=== PATIENT | female | born 1970 | race Caucasian/White ===

== ENCOUNTER 2022-01-23 12:43 | Emergency (ER) | payer OTHER ==
[~2022-01-23] VITALS: Ht 165.1 cm; Wt 60.3 kg
[2022-01-23] MEDS ORDERED: HYDROXYCHLOROQ200 MG PO (12:57)
[2022-01-23] MEDS ORDERED: IMURAN50 MG PO (12:57)
[2022-01-23] MEDS ORDERED: PROZAC20 MG PO (12:58)
[2022-01-23] MEDS ORDERED: WELLBUTRIN XL300 MG PO (12:58)
[2022-01-23] MEDS ORDERED: PROZAC40 MG PO (12:58)
[2022-01-23] MEDS ORDERED: SYNTHROID88 MCG PO (12:59)
[2022-01-23] MEDS ORDERED: TRAZODONE HCL50 MG PO (12:59)
[2022-01-23] MEDS ORDERED: CLONAZEPAM1 MG PO (12:59)
== END 2022-01-23 17:13 | disposition home or self-care (01) ==
LOC: ER 12:43
DX: N88.8 Other specified noninflammatory disorders of cervix uteri (principal); R10.2 Pelvic and perineal pain

== ENCOUNTER 2022-01-28 08:24 | Emergency (ER) | payer OTHER ==
[~2022-01-28] VITALS: Ht 165.1 cm; Wt 60.3 kg
[~2022-01-28 08:24] MED LIST: CLONAZEPAM1 MG PO; HYDROXYCHLOROQ200 MG PO; IMURAN50 MG PO; PROZAC20 MG PO; PROZAC40 MG PO; SYNTHROID88 MCG PO; TRAZODONE HCL50 MG PO; WELLBUTRIN XL300 MG PO
== END 2022-01-28 10:36 | disposition home or self-care (01) ==
LOC: ER 08:24
DX: R10.2 Pelvic and perineal pain (principal); I10 Essential (primary) hypertension; Z88.6 Allergy status to analgesic agent; Z88.8 Allergy status to other drugs, medicaments and biological substances

== ENCOUNTER 2022-03-09 12:28 | Inpatient (IN) | payer OTHER ==
[~2022-03-09] VITALS: Ht 165.1 cm; Wt 59.0 kg
--- NOTE | 2022-03-09 12:58 | NUR ---
SE RECIBE PACIENTE ALERTA, ORIENTADA X 3 ESFERAS REFIERE TENER MALESTAR GENERAL, DOLORDOLOR CUERPO, ESPALDA BAJA , REFIERE INFECCION DE ORINA PTE PRESENTA VOMITO EN AREA DE TRIAGE SE ESTIMAN S/V SE UBIVCA EN AREA DE OBSERVACION
--- NOTE | 2022-03-09 15:13 | NUR ---
PTE EVALUADO POR MD YASMIN BRODYENA [place] MED. PTE SE ORIEWNTA SOBRE EL MISMO Y REFIER EENTENDER. MS ANN EJECUTA ORDENES BAJO MEDIDDAS ACEPTICAS. PTE PEND POR RESULTADOS DE LAB.
[2022-03-12] MEDS ORDERED: REPLENS VAGINAL35 GM (10:56)
[2022-03-12] MEDS ORDERED: ESTRADIOL10 MCG (10:56)
[2022-03-12] MEDS ORDERED: ARIPIPRAZOLE5 MG (10:56)
[2022-03-12] MEDS ORDERED: OFLOXACIN5 ML (10:56)
[2022-03-12] MEDS ORDERED: PREMARIN30 GM (10:57)
[2022-03-12] MEDS ORDERED: FAMOTIDINE20 MG (10:57)
[2022-03-12] MEDS ORDERED: EPINEPHRIN0.3 MG/0.3 (10:57)
[2022-03-14] MEDS ORDERED: IPRATROPIU0.2 MG/1 M IH (14:22)
[2022-03-14] MEDS ORDERED: LORATADINE10 MG PO (14:22)
[2022-03-14] MEDS ORDERED: XOPENEX0.63 MG/3 IH (14:23)
[2022-03-14] MEDS ORDERED: TUSSIN DM LIQU118 ML PO (14:23)
[2022-03-14] MEDS ORDERED: BENZONATATE100 MG PO (14:23)
[2022-03-14] MEDS ORDERED: FLONASE16 GM NASAL (14:24)
[2022-03-14] MEDS ORDERED: INTESTINEX680 M1 PO (14:24)
[2022-03-14] MEDS ORDERED: PREDNISONE10 MG PO (14:25)
[2022-03-14] MEDS ORDERED: AMPICILLIN TRI500 MG PO (14:26)
[2022-03-14] MEDS ORDERED: PEPCID AC20 MG PO (14:27)
[2022-03-14] MEDS ORDERED: DEXILANT30 MG PO (14:27)
== END 2022-03-14 17:04 | disposition home or self-care (01) | DRG 690 ==
LOC: ER 12:28 → MEDI 03-10 04:37 → MEDJ 03-12 11:07
PROVIDERS: ADMIT Internal Medicine; ATTEND Internal Medicine
PROC: BW21ZZZ Computerized Tomography (CT Scan) of Abdomen and Pelvis (ICD-10-PCS; principal; 2022-03-10)
DX: N39.0 Urinary tract infection, site not specified (principal); B96.89 Other specified bacterial agents as the cause of diseases classified elsewhere; M32.9 Systemic lupus erythematosus, unspecified; M79.7 Fibromyalgia; Z20.822 Contact with and (suspected) exposure to COVID-19; E03.9 Hypothyroidism, unspecified

== ENCOUNTER 2022-06-15 09:48 | Emergency (ER) | payer OTHER ==
[~2022-06-15] VITALS: Ht 165.1 cm; Wt 61.2 kg
[~2022-06-15 09:48] MED LIST changes: +AMPICILLIN TRI500 MG PO; +ARIPIPRAZOLE5 MG; +BENZONATATE100 MG PO; +DEXILANT30 MG PO; +EPINEPHRIN0.3 MG/0.3; +ESTRADIOL10 MCG; +FAMOTIDINE20 MG; +FLONASE16 GM NASAL; +INTESTINEX680 M1 PO; +IPRATROPIU0.2 MG/1 M IH; +LORATADINE10 MG PO; +OFLOXACIN5 ML; +PEPCID AC20 MG PO; +PREDNISONE10 MG PO; +PREMARIN30 GM; +REPLENS VAGINAL35 GM; +TUSSIN DM LIQU118 ML PO; +XOPENEX0.63 MG/3 IH
== END 2022-06-15 17:35 | disposition left against medical advice (07) ==
LOC: ER 09:48
DX: R10.2 Pelvic and perineal pain (principal); N39.0 Urinary tract infection, site not specified; Z88.6 Allergy status to analgesic agent; Z88.8 Allergy status to other drugs, medicaments and biological substances; Z20.822 Contact with and (suspected) exposure to COVID-19

== ENCOUNTER 2022-10-18 07:32 | Outpatient (CLI) | payer OTHER | END 2022-10-18 07:38 | disposition home or self-care (01) | LOC: SONOGRAMA 07:32 | PROVIDERS: ATTEND General Practice | DX: R80.9 Proteinuria, unspecified (principal); N39.9 Disorder of urinary system, unspecified; N18.31 Chronic kidney disease, stage 3a; M32.10 Systemic lupus erythematosus, organ or system involvement unspecified ==

== ENCOUNTER 2022-12-20 08:24 | Emergency (ER) | payer OTHER ==
[~2022-12-20] VITALS: Ht 165.1 cm; Wt 62.6 kg
[2022-12-20] MEDS ORDERED: SYNTHROID88 MCG PO (08:42)
[2022-12-20] MEDS ORDERED: PROZAC40 MG PO (08:42)
[2022-12-20] MEDS ORDERED: IMURAN50 MG (08:43)
[2022-12-20] MEDS ORDERED: CLONAZEPAM1 MG PO (08:43)
== END 2022-12-20 12:54 | disposition home or self-care (01) ==
LOC: ER 08:24
DX: N39.0 Urinary tract infection, site not specified (principal); L93.0 Discoid lupus erythematosus; Z88.6 Allergy status to analgesic agent; Z88.8 Allergy status to other drugs, medicaments and biological substances

== ENCOUNTER 2023-02-09 10:07 | Emergency (ER) | payer OTHER ==
[~2023-02-09] VITALS: Ht 165.1 cm; Wt 65.3 kg
[~2023-02-09 10:07] MED LIST changes: +IMURAN50 MG
[2023-02-09] MEDS ORDERED: PLAQUENIL (10:45)
== END 2023-02-09 15:49 | disposition home or self-care (01) ==
LOC: ER 10:07
PROVIDERS: Emergency Medicine
DX: M32.8 Other forms of systemic lupus erythematosus (principal); K21.9 Gastro-esophageal reflux disease without esophagitis; K29.70 Gastritis, unspecified, without bleeding; K58.8 Other irritable bowel syndrome; F32.89 Other specified depressive episodes; Z88.6 Allergy status to analgesic agent; Z88.8 Allergy status to other drugs, medicaments and biological substances; M79.7 Fibromyalgia
CPT/HCPCS: 36415; 96365; 96366; 99284; J2270; J3490; J7042

== ENCOUNTER 2023-11-20 11:16 | Emergency (ER) | payer OTHER ==
[~2023-11-20] VITALS: Ht 165.1 cm; Wt 66.7 kg
[~2023-11-20 11:16] MED LIST changes: +GUAIFENESI100 MG/52 PO; +LIRICA; +PLAQUENIL; +PROPRANOLOL HCL10 MG; +ZITHROMAX500 MG PO
[2023-11-20] MEDS ORDERED: FAMOTIDINE/PF 20 MG in 0.9 % SODIUM CHLORIDE 8 ML IV PUSH STA (11:37)
[2023-11-20] MEDS ORDERED: 0.9 % SODIUM CHLORIDE 1,000 ML IV SCH (11:45)
[2023-11-20] MEDS ORDERED: HYOSCYAMINE SULFATE 0.125 MG TAB.SUBL SL ONE (11:45)
[2023-11-20] MEDS ORDERED: ONDANSETRON HCL 2 MG/ML VIAL IV ONE (11:45)
[2023-11-20] MEDS ORDERED: HYOSCYAMINE SULFATE 0.125 MG TAB.SUBL ONE (11:58)
[2023-11-20] MEDS ORDERED: ONDANSETRON HCL 2 MG/ML VIAL ONE (11:58)
[2023-11-20] MEDS ORDERED: FAMOTIDINE/PF 20 MG/2 ML VIAL ONE (11:59)
[2023-11-20 12:49] LABS: HEMATOCRIT 35.6 % (36.0-45.00); HEMOGLOBIN 11.8 g/dL (12.0-15.00); MEAN CELL VOLUME 87.6 fL (80.00-100.00); MEAN CORPUSCULAR HEMOGLOBIN 29.1 pg (27.00-32.0); MEAN CORPUSCULAR HGB CONC 33.2 g/dl (32.0-36.0); PLATELET COUNT 217 K/uL (150-450); RED BLOOD COUNT 4.07 M/uL (4.00-6.00)
[2023-11-20 13:05] LABS: ALBUMIN 3.4 gm/dL (3.4-5.0); BILIRUBIN TOTAL 0.23 mg/dL (0.3-1.2); CALCIUM 9.4 mg/dL (8.5-10.1); CREATININE SERUM 0.97 mg/dL (0.55-1.02); GFR 59.84; GLOBULINA 3.9 G/DL (2.4-3.5); POTASSIUM 4.08 mEq/L (3.5-5.1); TOTAL PROTEIN 7.3 gm/dL (6.4-8.2)
[2023-11-20] MEDS ORDERED: ALBUTEROL SULFATE 8.5 GM HFA.AER.AD IH SCH (14:11)
[2023-11-20] MEDS ORDERED: GUAIFENESIN/DEXTROMETHORPHAN 10ML BLIST.PACK PO ONE ×2 (14:15→14:40)
[2023-11-20] MEDS ORDERED: XOPENEX CO1.25 MG/0. IH (15:56)
[2023-11-20] MEDS ORDERED: PEPCID AC20 MG PO (15:56)
[2023-11-20] MEDS ORDERED: ZITHROMAX500 MG PO (15:56)
[2023-11-20] MEDS ORDERED: TUSNEL LIQUID178 ML PO (15:56)
[2023-11-20] MEDS ORDERED: ONDANSETRON ODT8 MG PO (15:56)
== END 2023-11-20 16:24 | disposition home or self-care (01) ==
LOC: ER 11:17
PROVIDERS: General Practice
DX: U07.1 COVID-19 (principal); A49.3 Mycoplasma infection, unspecified site; K29.00 Acute gastritis without bleeding; R10.9 Unspecified abdominal pain; Z88.6 Allergy status to analgesic agent
CPT/HCPCS: 36415; 76700; 96365; 96366; 99284; J2405; J3490; J7030

== ENCOUNTER 2023-12-10 07:25 | Outpatient (CLI) | payer OTHER ==
[~2023-12-10 07:25] MED LIST changes: +ONDANSETRON ODT8 MG PO; +TUSNEL LIQUID178 ML PO; +XOPENEX CO1.25 MG/0. IH
== END 2023-12-10 07:26 | disposition home or self-care (01) ==
LOC: NUCLEAR 07:25
DX: K31.84 Gastroparesis (principal)
CPT/HCPCS: 78264; A9541

== ENCOUNTER 2023-12-16 08:49 | Outpatient (CLI) | payer OTHER | END 2023-12-16 09:06 | disposition home or self-care (01) | LOC: TOM 08:49 | PROVIDERS: ATTEND Internal Medicine Gastroenterology | DX: K56.51 Intestinal adhesions [bands], with partial obstruction (principal) ==

== ENCOUNTER → 2024-01-20 | Emergency (ER) | payer OTHER | END | disposition left against medical advice (07) | LOC: ER 11:30 | DX: Z53.21 Procedure and treatment not carried out due to patient leaving prior to being seen by health care provider (principal) ==

== ENCOUNTER 2024-04-02 18:11 | Emergency (ER) | payer OTHER ==
[~2024-04-02] VITALS: Ht 165.1 cm; Wt 65.8 kg
[2024-04-02] MEDS ORDERED: LEVO-T88 MCG PO (18:22)
[2024-04-02] MEDS ORDERED: IMURAN50 MG PO (18:23)
[2024-04-02] MEDS ORDERED: PROZAC20 MG PO (18:24)
[2024-04-02] MEDS ORDERED: HYDROXYCHLOROQ200 MG PO (18:26)
[2024-04-02] MEDS ORDERED: ONDANSETRON HCL 2 MG/ML VIAL IV STA (18:42)
[2024-04-02] MEDS ORDERED: 0.9 % SODIUM CHLORIDE 1,000 ML IV SCH (18:45)
[2024-04-02] MEDS ORDERED: MEPERIDINE HCL/PF 50 MG/ML VIAL IM ONE (18:45)
[2024-04-02 19:12] LABS: HEMATOCRIT 35.8 % (36.0-45.00); HEMOGLOBIN 12.1 g/dL (12.0-15.00); MEAN CELL VOLUME 89.2 fL (80.00-100.00); MEAN CORPUSCULAR HEMOGLOBIN 30.3 pg (27.00-32.0); MEAN CORPUSCULAR HGB CONC 33.9 g/dl (32.0-36.0); PLATELET COUNT 210 K/uL (150-450); RED BLOOD COUNT 4.01 M/uL (4.00-6.00)
[2024-04-02 19:32] LABS: CREATININE SERUM 0.9 mg/dL (0.55-1.02); GFR 65.25; POTASSIUM 4.11 mEq/L (3.5-5.1)
[2024-04-02 21:12] LABS: URINE APPEARANCE Turbid; URINE BILIRRUBIN Negative (NEGATIVE); URINE BLOOD Negative; URINE COLOR Yellow; URINE GLUCOSE Negative (NEGATIVE); URINE KETONE Negative (NEGATIVE); URINE LEUKOCYTE Moderate; URINE NITRATE Negative; URINE PROTEIN 30 (NEGATIVE); URINE UROBILINOGEN 0.2 E.U./dl
[2024-04-02 21:15] LABS: URINE BACTERIA 3006.3 uL (0.0-1933); URINE EPITHELIAL CELLS 69.7 uL (0.0-38.8); URINE RBC 6.7 uL (0.0-20.8)
[2024-04-02 21:28] LABS: URINE CAST 0.15 uL (0.0-1.40)
[2024-04-02] MEDS ORDERED: MEPERIDINE HCL/PF 25 MG/ML VIAL IV ONE (21:45)
[2024-04-03] MEDS ORDERED: levoFLOXacin IN DEXTROSE 5 % 500MG/100ML PIGGYBAG IV ONE (00:15)
[2024-04-03] MEDS ORDERED: LEVOFLOXACIN500 MG PO (02:45)
== END 2024-04-03 03:14 | disposition home or self-care (01) ==
LOC: ER 18:13
PROVIDERS: Emergency Medicine
DX: N39.0 Urinary tract infection, site not specified (principal); R10.2 Pelvic and perineal pain; E03.8 Other specified hypothyroidism; Z88.6 Allergy status to analgesic agent; Z88.8 Allergy status to other drugs, medicaments and biological substances
CPT/HCPCS: 36415; 74176; 96365; 96366; 96372; 99284; J1956; J2405; J3490 ×2; J7030

== ENCOUNTER 2024-04-05 13:28 | Emergency (ER) | payer OTHER ==
[~2024-04-05] VITALS: Ht 165.1 cm; Wt 65.8 kg
[~2024-04-05 13:28] MED LIST changes: +LEVO-T88 MCG PO; +LEVOFLOXACIN500 MG PO
[2024-04-05] MEDS ORDERED: MEPERIDINE HCL/PF 50 MG/ML VIAL IM ONE (16:00)
[2024-04-05] MEDS ORDERED: 0.9 % SODIUM CHLORIDE 1,000 ML IV ONE (16:00)
[2024-04-05] MEDS ORDERED: FAMOTIDINE/PF 20 MG/2 ML VIAL IV ONE (16:00)
[2024-04-05] MEDS ORDERED: ONDANSETRON HCL 2 MG/ML VIAL IV ONE (16:00)
[2024-04-05 16:27] LABS: HEMATOCRIT 37.6 % (36.0-45.00); HEMOGLOBIN 12.7 g/dL (12.0-15.00); MEAN CELL VOLUME 89.4 fL (80.00-100.00); MEAN CORPUSCULAR HEMOGLOBIN 30.3 pg (27.00-32.0); MEAN CORPUSCULAR HGB CONC 33.8 g/dl (32.0-36.0); PLATELET COUNT 226 K/uL (150-450); RED CELL DISTRIBUTION WIDTH 15.6 % (11.5-14.5)
[2024-04-05 17:38] LABS: ALBUMIN 3.5 gm/dL (3.4-5.0); BILIRUBIN TOTAL 0.29 mg/dL (0.3-1.2); CALCIUM 8.9 mg/dL (8.5-10.1); CREATININE SERUM 0.97 mg/dL (0.55-1.02); GFR 59.84; GLOBULINA 2.8 G/DL (2.4-3.5); POTASSIUM 3.67 mEq/L (3.5-5.1); TOTAL PROTEIN 6.3 gm/dL (6.4-8.2)
[2024-04-05 18:13] LABS: PH,URINE 7.5 (5.0-8.0); URINE APPEARANCE Cloudy; URINE BILIRRUBIN Negative (NEGATIVE); URINE BLOOD Negative; URINE COLOR Dark Yellow; URINE GLUCOSE Negative (NEGATIVE); URINE KETONE Trace (NEGATIVE); URINE LEUKOCYTE Small; URINE NITRATE Negative; URINE PROTEIN 30 (NEGATIVE); URINE UROBILINOGEN 0.2 E.U./dl
[2024-04-05 18:17] LABS: URINE BACTERIA 991.5 uL (0.0-1933); URINE EPITHELIAL CELLS 46.5 uL (0.0-38.8); URINE RBC 4.1 uL (0.0-20.8); URINE WBC 11.4 uL (0.0-23.2)
[2024-04-05] MEDS ORDERED: ORPHENADRINE CITRATE 30 MG/ML AMPUL IV ONE (19:00)
[2024-04-05] MEDS ORDERED: ONDANSETRON HCL4 MG PO (20:20)
[2024-04-05] MEDS ORDERED: NORFLEX100MG PO (20:20)
== END 2024-04-05 20:56 ==
LOC: ER 13:30 → EDBD 14:59 → ER 14:59
PROVIDERS: Nurse Practitioner Family
DX: N39.0 Urinary tract infection, site not specified (principal); E03.8 Other specified hypothyroidism; Z88.5 Allergy status to narcotic agent; Z88.8 Allergy status to other drugs, medicaments and biological substances
CPT/HCPCS: 36415; 76770; 96365; 96366; 96372; 99284; J2360; J2405; J3490 ×2; J7030

== ENCOUNTER 2024-05-01 10:38 | Emergency (ER) | payer OTHER ==
[~2024-05-01] VITALS: Ht 165.1 cm; Wt 65.8 kg
[~2024-05-01 10:38] MED LIST changes: +NORFLEX100MG PO; +ONDANSETRON HCL4 MG PO
[2024-05-01] MEDS ORDERED: PLAQUENIL PO (11:33)
[2024-05-01] MEDS ORDERED: TRAZODONE HCL150 MG (11:33)
[2024-05-01] MEDS ORDERED: TRAMADOL HCL 50 MG TABLET PO STA (12:02)
[2024-05-01] MEDS ORDERED: MEPERIDINE HCL/PF 25 MG/ML VIAL IM STA (12:03)
[2024-05-01 12:47] LABS: URINE APPEARANCE Clear; URINE BILIRRUBIN Small (NEGATIVE); URINE BLOOD Negative; URINE COLOR Orange; URINE GLUCOSE Negative (NEGATIVE); URINE KETONE Negative (NEGATIVE); URINE LEUKOCYTE Small; URINE NITRATE Positive; URINE PROTEIN Negative (NEGATIVE)
[2024-05-01 12:49] LABS: HEMATOCRIT 37.9 % (36.0-45.00); HEMOGLOBIN 12.6 g/dL (12.0-15.00); MEAN CORPUSCULAR HEMOGLOBIN 30.5 pg (27.00-32.0); MEAN CORPUSCULAR HGB CONC 33.1 g/dl (32.0-36.0); PLATELET COUNT 199 K/uL (150-450); RED BLOOD COUNT 4.11 M/uL (4.00-6.00); RED CELL DISTRIBUTION WIDTH 14.4 % (11.5-14.5)
[2024-05-01 12:52] LABS: URINE BACTERIA 882.4 uL (0.0-1933); URINE EPITHELIAL CELLS 25.3 uL (0.0-38.8); URINE RBC 19.7 uL (0.0-20.8); URINE WBC 10.9 uL (0.0-23.2)
[2024-05-01 12:56] LABS: CALCIUM 9.2 mg/dL (8.5-10.1); CREATININE SERUM 0.93 mg/dL (0.55-1.02); GFR 62.82; POTASSIUM 4.08 mEq/L (3.5-5.1)
[2024-05-01 13:23] LABS: URINE CAST 0.29 uL (0.0-1.40)
== END 2024-05-01 14:23 | disposition home or self-care (01) ==
LOC: ER 10:40
PROVIDERS: General Practice
DX: N39.0 Urinary tract infection, site not specified (principal); R10.2 Pelvic and perineal pain; Z88.6 Allergy status to analgesic agent; Z88.8 Allergy status to other drugs, medicaments and biological substances; Z91.013 Allergy to seafood